=== PATIENT | female | born 1965 | race Caucasian/White ===

== ENCOUNTER 2022-05-21 06:28 | Inpatient (IN) | payer MEDICAID ==
[2022-05-16 11:16] LABS: BASOPHILS # (AUTO) 0.1 X10'3 (0-0.2); BASOPHILS % (AUTO) 0.7 % (0-1); EOSINOPHILS # (AUTO) 0.1 X10'3 (0-0.9); EOSINOPHILS % (AUTO) 1.1 % (0-6); LYMPHOCYTES % (AUTO) 38.5 % (21-51); MEAN CORPUSCULAR HEMOGLOBIN 31.3 PG (27.0-31.0); MEAN CORPUSCULAR HGB CONC 33.5 g/dL (33.0-36.5); MEAN CORPUSCULAR VOLUME 93.6 FL (78-98); MEAN PLATELET VOLUME 7.9 FL (7.4-10.4); MONOCYTES # (AUTO) 0.7 X10'3 (0-0.9); MONOCYTES % (AUTO) 6.7 % (2-12); NEUTROPHILS # (AUTO) 5.5 X10'3 (1.8-7.7); PRE OP HEMATOCRIT 35.7 % (35.0-45.0); PRE OP PLATELET COUNT 427 X10'3 (140-440); RED BLOOD COUNT 3.82 X10'6 (4.20-5.60); RED CELL DISTRIBUTION WIDTH 15.5 % (11.5-14.5)
[2022-05-16 11:41] LABS: ALBUMIN 4.1 G/DL (3.4-5.0); ALKALINE PHOSPHATASE 74 IU/L (46-116); BLOOD UREA NITROGEN 23 MG/DL (7-18); BUN/CREATININE RATIO 17.8 (6.6-38.0); CHLORIDE 105 MMOL/L (99-107); CREATININE 1.29 MG/DL (0.40-0.90); PRE OP ALT 20 U/L (30-65); PRE OP ANION GAP 10 (8-16); PRE OP AST 14 U/L (10-37); PRE OP BILIRUB, TOTAL 0.3 MG/DL (0.0-1.0); PRE OP GLUCOSE 114 MG/DL (70-104); PRE OP POTASSIUM 4.1 MMOL/L (3.4-5.1); PRE OP SODIUM 141 MMOL/L (135-145); TOTAL CARBON DIOXIDE 26.1 MMOL/L (24-32); TOTAL PROTEIN 8.3 G/DL (6.4-8.2); eGFR 43 ML/MIN
[2022-05-21] VITALS (23 sets, daily range): BP systolic 13–151; BP diastolic 59–94
[~2022-05-21] VITALS: Ht 170.2 cm; Wt 59.2 kg
[~2022-05-21 06:28] MED LIST: AMLO5TAB16 PO; ASPI-611 PO; ATOM40CA PO; CITA-109 PO; CYAN50003 PO; DOCUMENT DATE & TIME OF BETA-BLOCKER PO ONE; FOLI1TAB27 PO; LISI20TA28 PO; METH2.5T PO; METO50TA16 PO; acetaminophen 325mg tablet PO ONE; ceFAZolin inj. 2,000 MG in dextrose 5%-water 100 ML IV ONE; celeCOXIB 100mg capsule PO ONE; famotidine 20mg tablet PO ONE; gabapentin 300mg capsule PO ONE; metoclopramide 5 mg/ml inj IV ONE; oxyCODONE SR 10mg (sust. release) tab -2 tabs (20mg) PO ONE; ringers solution, lacted 1,000 ML IV SCH; tranexamic acid inj. 1,000 MG in 0.7% saline 100 ML PMX IV ONE; vancomycin/NS 1 GM in NS 250 ML IV ONE
--- NOTE | 2022-05-21 06:40 | NUR ---
CSM: PEDAL PULSES PRESENT AND MARKED. PATIENT READ THE BROCHURE AND STATED SHE DID NOT RECEIVE THE MUPIROCIN CREAM. EDUCATED PATIENT ON THE USE OF THE INCENTIVE SPIROMETER AND ITS IMPORTANCE
[2022-05-21] MEDS ORDERED: bisacodyl 10mg suppository rectal RC PRN (07:15)
[2022-05-21] MEDS ORDERED: diphenhydrAMINE 25mg capsule PO PRN ×2 (07:15→21:00)
[2022-05-21] MEDS ORDERED: acetaminophen 325mg tablet PO PRN (07:15)
[2022-05-21] MEDS ORDERED: ketorolac trometh. 30mg/ml inj. ONE (08:52)
[2022-05-21] MEDS ORDERED: epiNEPHrine 1 mg/ml inj ONE (08:53)
[2022-05-21] MEDS ORDERED: ROPIVAcaine 0.5% (5mg/ml) 30ml vial ONE (08:53)
[2022-05-21] MEDS ORDERED: cloNIDine hcl/PF 100mcg/ml inj ONE (08:53)
[2022-05-21] MEDS ORDERED: vancomycin 1,000mg inj ONE (09:07)
[2022-05-21] MEDS ORDERED: propofol 10mg/ml 20ml vial IV ONE (09:22)
[2022-05-21] MEDS ORDERED: MIDAZolam 1mg/ml 10ml vial ONE (09:30)
[2022-05-21] MEDS ORDERED: fentaNYL/PF 50MCG/1 ML 2ML syringe ONE (09:30)
--- NOTE | 2022-05-21 10:58 | NUR ---
Received from OR via ORTHO BED , accompanied by Anesthesiologist DILIP and report given by Anesthesiolgist. PATIENT WITH RIHT KNEE IMMOBILIZER PRESENT. + DP PRESENT TO RIGHT FOOT. PATIENT WITH CELINE VAC PRESENT AND DRESSING IS CDI. VSS. SCDS DONNED. 10L MASK ON WITH 100% SATURATIONS WITH 10L MASK ON . Addendum: 05/21/22 at 1115 by Arturo Maloney RN, RN Amended: Links added.
[2022-05-21] MEDS: potassium cl 20mEq in 1/2 NS 1,000 ML IV SCH ×2 (11:48→20:41)
[2022-05-21] MEDS ORDERED: magnesium hydroxide 30ml (MOM) UD suspension PO PRN (11:49)
[2022-05-21] MEDS ORDERED: HYDROmorphone 1 mg/ml syringe IV PRN (11:49)
[2022-05-21] MEDS ORDERED: naloxone 0.4 mg/ml inj IV PRN (11:50)
[2022-05-21] MEDS ORDERED: HYDROmorphone inj. 0.5 MG/0.5 ML DISP.SYRIN IV PRN (12:00)
--- NOTE | 2022-05-21 12:41 | NUR ---
Patient in room PAS IN 900. I have received report from sheng pulido and had the opportunity to ask questions and assume patient care.
--- NOTE | 2022-05-21 12:48 | NUR ---
CARE OF PATIENT AND REPORT HAS BEEN CALLED. ALL QUESTIONS ANSWERED TO ACCEPTING RN. PATIENT HAS MET ALL CRITERIA FOR TRANSFER TO THE SURGICAL ORTHO FLOOR. VSS. DRESSINGS INTACT. BED LOW, CALL LIGHT PRESENT AND 2 RAILS UP. RN NOT PRESENT TO ACCEPT PATIENT ON ARRIVAL BUT IS AWARE PATIENT HAS ARRIVED. ALL VS HOOKED UP AND ARE STABLE. SPOUSE WITH PATIENT AT BEDSIDE. ONE BAG OF LABELED BELONGING PRESENT WITH PATIENT. Addendum: 05/21/22 at 1316 by Arturo Mckeon - AN RN Amended: Links added.
[2022-05-21] MEDS: ondansetron/PF 4mg/2ml inj IV PRN ×2 (13:43→19:16)
[2022-05-21] MEDS: gabapentin 300mg capsule PO SCH ×2 (14:37→20:27)
[2022-05-21] MEDS ORDERED: TRANEXAMIC ACID IV ONE (15:00)
[2022-05-21] MEDS ORDERED: NORMAL SALINE IV ONE (15:00)
[2022-05-21] MEDS: ceFAZolin/D5W- 1GM premix 50 ML IV SCH ×2 (17:19→23:41)
--- NOTE | 2022-05-21 18:38 | NUR ---
Problems reprioritized. Patient report given, questions answered & plan of care reviewed with cammy pulido.
[2022-05-21] MEDS ORDERED: vancomycin/NS 1 GM ADD-VANTAGE 250 ML IV SCH (20:00)
[2022-05-21] MEDS: metoprolol tartrate 50mg tablet PO SCH (20:27)
[2022-05-21] MEDS: ascorbic acid 500mg tablet PO SCH (20:27)
[2022-05-21] MEDS: lisinopril 20mg tablet PO SCH (20:28)
[2022-05-21] MEDS ORDERED: amLODIPine 5mg tablet PO SCH (21:00)
[2022-05-21] MEDS ORDERED: atomoxetine 40 MG capsule PO SCH (21:00)
[2022-05-21] MEDS ORDERED: sennosides 8.6mg tablet PO SCH (21:00)
[2022-05-22 02:00] VITALS: BP 135/87
[2022-05-22] MEDS: potassium cl 20mEq in 1/2 NS 1,000 ML IV SCH (04:20)
[2022-05-22] MEDS: ondansetron/PF 4mg/2ml inj IV PRN (05:28)
[2022-05-22 06:00] VITALS: BP 136/82
--- NOTE | 2022-05-22 06:00 | NUR ---
Problems reprioritized. Patient report given, questions answered & plan of care reviewed with AN LINDSEY.
--- NOTE | 2022-05-22 06:51 | NUR ---
Patient in room ORTHO 4015. I have received report from cammy pulido and had the opportunity to ask questions and assume patient care.
[2022-05-22 06:56] LABS: BASOPHILS # (AUTO) 0.1 X10'3 (0-0.2); BASOPHILS % (AUTO) 0.6 % (0-1); EOSINOPHILS % (AUTO) 0.2 % (0-6); HEMATOCRIT 32.5 % (35.0-45.0); HEMOGLOBIN 10.6 g/dl (12.0-16.0); LYMPHOCYTES # (AUTO) 2.7 X10'3 (1.1-4.8); LYMPHOCYTES % (AUTO) 18.4 % (21-51); MEAN CORPUSCULAR HEMOGLOBIN 30.8 PG (27.0-31.0); MEAN CORPUSCULAR HGB CONC 32.7 g/dL (33.0-36.5); MEAN CORPUSCULAR VOLUME 94.2 FL (78-98); MEAN PLATELET VOLUME 8.9 FL (7.4-10.4); MONOCYTES % (AUTO) 6.7 % (2-12); NEUTROPHILS # (AUTO) 10.9 X10'3 (1.8-7.7); NEUTROPHILS % (AUTO) 74.1 % (42-75); PLATELET COUNT 338 X10'3 (140-440); RED BLOOD COUNT 3.45 X10'6 (4.20-5.60); RED CELL DISTRIBUTION WIDTH 15.6 % (11.5-14.5); WHITE BLOOD COUNT 14.7 X10'3 (4.5-11.0)
[2022-05-22 07:32] LABS: ANION GAP 10 (8-16); CHLORIDE 107 MMOL/L (99-107); POTASSIUM 4.4 MMOL/L (3.5-5.1); SODIUM 140 MMOL/L (135-145); TOTAL CARBON DIOXIDE 22.8 MMOL/L (24-32)
[2022-05-22] MEDS ORDERED: folic acid 1mg tablet PO SCH (08:00)
[2022-05-22] MEDS ORDERED: citalopram 20mg tablet PO SCH (08:00)
[2022-05-22] MEDS ORDERED: multivitamins, therapeutics tablet PO SCH (08:00)
[2022-05-22] MEDS: ascorbic acid 500mg tablet PO SCH (08:01)
[2022-05-22] MEDS: lisinopril 20mg tablet PO SCH (08:01)
[2022-05-22] MEDS: metoprolol tartrate 50mg tablet PO SCH (08:01)
[2022-05-22] MEDS: gabapentin 300mg capsule PO SCH (08:01)
[2022-05-22] MEDS ORDERED: aspirin 325mg tablet PO SCH (08:30)
[2022-05-22 10:00] VITALS: BP 143/90
--- NOTE | 2022-05-22 10:47 | NUR ---
PT IS STABLE FOR DISCHARGE, IV IS DC, PAPERWORK GONE OVER AND SIGNED, ALL BELONGINGS TAKEN, PT WAS WHEELED DOWN TO THE LOBBY BY AIDE, AND PICKED UP BY IN A PRIVATE VEHICLE.
--- NOTE | 2022-05-22 11:53 | NUR ---
Joint surgery consult: Pt s/p R MICHAEL this admit per EMR. Pt seen by JEN for written/verbal high protein ed w/ RD contact information provided. JEN encouraged pt to contact dietitian's office if further questions/concerns. Addendum: 05/22/22 at [address] Amended: Links added.
[2022-05-22] MEDS ORDERED: celeCOXIB 100mg capsule PO SCH (20:00)
== END 2022-05-22 11:28 | disposition home or self-care (01) | DRG 323 ==
LOC: PAS IN 06:28 → ORTHO 4S 12:55 → EDSEX 13:30
PROVIDERS: ADMIT Orthopaedic Surgery; ATTEND Orthopaedic Surgery
PROC: 0SR906Z Replacement of Right Hip Joint with Oxidized Zirconium on Polyethylene Synthetic Substitute, Open Approach (ICD-10-PCS; principal; 2022-05-21 09:22)
DX: S72.001A Fracture of unspecified part of neck of right femur, initial encounter for closed fracture (principal); Z79.82 Long term (current) use of aspirin; X58.XXXA Exposure to other specified factors, initial encounter; Z79.899 Other long term (current) drug therapy; Y93.89 Activity, other specified; Y92.89 Other specified places as the place of occurrence of the external cause; Y99.8 Other external cause status
CPT/HCPCS: 36415; 72170; 80051; 80053; 82948; 85025; 86885; 86900; 86901; 87081; 97116; 97161; 97530; A6258; A7000; C1776; G0378; J0171; J0690; J0735; J1170; J1885; J2250; J2405; J2704; J2765; J2795; J3010; J3370; J3480; J3490; J7060; J7120